=== PATIENT | female | born 1960 | race Caucasian/White ===

== ENCOUNTER → 2020-12-31 | Day surgery (SDC) | payer OTHER ==
[~2020-12-31] VITALS: Ht 157.5 cm; Wt 47.7 kg
[~2020-12-31] MED LIST: ALBUTEROL SULFATE 2.5 MG/3 ML NEBU. NEB PRN; EPINEPHrine 1 MG/ML VIAL INJ PRN; EPINEPHrine 1 MG/ML VIAL ONE; HYDR-2759 PO; IV RINGERS,LACTATED 1000ML 1,000 ML IV SCH; LIDOCAINE 1% Multi-Dose 20 ML VIAL. INJ PRN; LIDOCAINE 1% Multi-Dose 20 ML VIAL. ONE; LIDOCAINE 2% PF 5 ML VIAL. ONE; LIDOCAINE 2% VISCOUS 100 ML BOTTLE. MM PRN; LIDOCAINE 2% VISCOUS 100 ML BOTTLE. ONE; LIDOCAINE 4% TOPICAL 50 ML SOLUTION. MM PRN; LIDOCAINE 4% TOPICAL 50 ML SOLUTION. ONE; LIDOCAINE WITH 8.4% SOD BICARB 3 ML DISP.SYRIN. INJ ONE; LIDOCAINE WITH 8.4% SOD BICARB 3 ML DISP.SYRIN. ONE; OMEP40CA7 PO; PROPOFOL 10 MG/ML (20ML) VIAL. IV ONE
[2020-12-31 08:57] VITALS: BP 116/82
[2020-12-31 09:24] LABS: BASO # 0.1 x10^3/uL (0.0-0.2); BASO % 1 % (0-3); EOS # 1.2 x10^3/uL (0.0-0.7); EOS % 9 % (0-3); HEMATOCRIT 42.9 % (36.0-47.0); HEMOGLOBIN 14.5 g/dL (12.0-15.5); LYMPH # 1.1 x10^3/uL (1.0-4.8); LYMPH % 8 % (24-48); MEAN CORPUSCULAR HEMOGLOBIN 32 pg (25-35); MEAN CORPUSCULAR HGB CONC 34 g/dL (31-37); MEAN CORPUSCULAR VOLUME 93 fL (79-100); MONO # 0.9 x10^3/uL (0.0-1.1); MONO % 7 % (0-9); NEUT # 10.1 x10^3/uL (1.8-7.7); NEUT % 76 % (31-73); PLATELET COUNT 564 x10^3/uL (140-400); RED BLOOD COUNT 4.61 x10^6/uL (3.50-5.40); RED CELL DISTRIBUTION WIDTH 12.3 % (11.5-14.5); WHITE BLOOD COUNT 13.3 x10^3/uL (4.0-11.0)
--- NOTE | 2020-12-31 10:45 | OP ---
DATE OF SURGERY: 12/31/2020 BRONCHOSCOPY NOTE INDICATIONS: Lung cancer. DESCRIPTION OF PROCEDURE: Informed consent was obtained from the patient. All risks and benefits were explained. She agreed to proceed with the procedure. Propofol was used by anesthesia for sedation. Bronch was introduced through the left nostril. The upper airway was passed. Vocal cords moves equally with respiration. The trachea was entered. There was a large lesion seen at the samy. Right lung was examined. There was total occlusion of the right upper lobe bronchus. There was also total occlusion of the right middle lobe bronchus by the endobronchial tumor. There was minimal opening of the right lower lobe bronchus. There was a tumor at the opening of that as well. Biopsies were performed from the endobronchial lesion in the right middle lobe as well as opening of the right lower lobe. There was minimal oozing of blood seen which was controlled with a squirt of epinephrine. Bronch was introduced in the left lung. There was a large endobronchial lesion seen at the distal left main stem bronchus. Airway beyond that was still patent. No biopsies were performed from that area. IMPRESSION: 1. Endobronchial lesion seen at the main samy, , endobronchial lesion in the right middle lobe causing a total occlusion of the RML bronchus, also endobronchial lesion in the right upper lobe causing total occlusion. There was also a lesion in the opening of the right lower lobe bronchus. 2. Endobronchial lesion seen in the distal left main stem bronchus as well. 3. Multiple biopsies were performed from the endobronchial lesions on the right side. Cytology brush was also performed. Minimal oozing of blood was controlled with epinephrine. 4. Follow the biopsy results. HINA DR: Shirley TID: [id number] MTDD
[2020-12-31 11:05] VITALS: BP 142/63
[2020-12-31 12:03] LABS: % BANDS 2 % (0-9); % BASOS 1 % (0-3); % EOS 7 % (0-5); % LYMPHS 3 % (24-48); % MONOS 5 % (0-10); % SEGS 82 % (35-66); PLT ESTIMATE INCREASED (ADEQUATE)
--- NOTE | 2021-01-02 17:07 | PATHOLOGY ---
Note [facility] Accession Number: [id number] TESTS RESULT FLAG UNITS REF RANGE LAB Clinician Provided Cytology Information No. of containers..01 Other (Miscellaneous) Source: [A] 01 RICARDO BRONCH BRUSH DIAGNOSIS: [A] 02 RICARDO BRONCH BRUSH POSITIVE FOR MALIGNANT CELLS. POORLY DIFFERENTIATED NON SMALL CELL CARCINOMA PRESENT. Signed out by: Davi Bender MD, Pathologist NPI- [id number] Performed by: Alejandra Yanez Financial Auditor ([facility]) Gross description: 01 JOBY HEMPHILL, 2 AF /LCS 01/02/2021 0304 Local FLAG LEGEND: L-Low Normal,H-High Normal,LL-Alert Low,HH-Alert High <-Panic Low,>-Panic High,A-Abnormal,AA-Critical Abnormal Performed at: [address] [place] [address] Toro Tracey MD, 02 [facility] [address] [place] [address] Davi Bender MD, Specimen Comment: A courtesy copy of this report has been sent to [phone] Specimen Comment: [phone] Specimen Comment: Report sent to DR. ENGLE / DR WEIR Specimen Comment: A duplicate report has been generated due to demographic updates. Performed at: [address] [place] [address] [facility] [address], [place], [place] [id number] MD Toro Tracey MD Phone: [phone]
--- NOTE | 2021-01-02 17:07 | PATHOLOGY ---
Note [facility] Accession Number: [id number] TESTS RESULT FLAG UNITS REF RANGE LAB Clinician Provided Cytology Information No. of containers..01 Other (Miscellaneous) Source: [A] 01 BRONCH BRUSHTIP DIAGNOSIS: [A] 02 BRONCH BR[place] POSITIVE FOR MALIGNANT CELLS. POORLY DIFFERENTIATED NON SMALL CELL CARCINOMA. Signed out by: 02 Davi Bender MD, Pathologist NPI- [id number] Performed by: Tessy Bains, Lead Software Developer ([facility]) Gross description: 01 BRUSHT, CLEAR COLORLESS, 1 TP /LCS 01/02/2021 0301 Local FLAG LEGEND: L-Low Normal,H-High Normal,LL-Alert Low,HH-Alert High <-Panic Low,>-Panic High,A-Abnormal,AA-Critical Abnormal Performed at: [address] [place] [address] Toro Tracey MD, 02 [facility] [address] [place] [address] Davi Bender MD, Specimen Comment: A courtesy copy of this report has been sent to [phone] Specimen Comment: [phone] Specimen Comment: Report sent to DR. ENGLE / DR WEIR Specimen Comment: A duplicate report has been generated due to demographic updates. Performed at: [address] [place] [address] [facility] [address], [place], [place] [id number] MD Toro Tracey MD Phone: [phone]
--- NOTE | 2021-01-03 16:08 | PATHOLOGY ---
[facility] Accession Number: [id number] . 01 Material submitted: . lung - BBX: RML, RLL, RUL . 01 Clinical history: . LUNG MASS/ TUMOR/ ENDOBRONCHIAL LESION BRONCHOSCOPY . 02 Diagnosis: Bronchial biopsies, right middle lobe, right lower lobe, and right upper lobe: - ADENOCARCINOMA, POORLY DIFFERENTIATED. SEE COMMENT. (JPM:keyla; 01/02/2021) S 01/03/2021 0851 Local . 02 Comment: Sections of the right middle lobe, right lower lobe, and right upper lobe bronchial biopsies reveal a malignant epithelial neoplasm. The malignant cells are present in small irregular solid nests within the stroma undermining the overlying bronchial mucosa. There is a focal suggestion of acinar formation. The malignant cells have ample amounts of eosinophilic cytoplasm, and possess enlarged, moderately to markedly pleomorphic irregular hyperchromatic nuclei containing prominent nucleoli. The tumor cells show no evidence of keratinization. A panel of immunoperoxidase stains is obtained on A1 and yields the following results: . Cytokeratin 7: Tumor cells positive. Cytokeratin 20: Tumor cells negative. TTF-1: Tumor cells positive. Napsin A: Tumor cells positive. P40: Tumor cells negative. . 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 The case is also examined by Dr. Madrigal, who concurs with the diagnosis on 01/03/18. The results are discussed with Dr. Oconenll on 01/02/2021. (JPM:keyla; 01/03/2021) . . Special stains performed: CK7, CK20, TTF-1, napsin A, and p40 on A1 . 02 Electronically signed: . Davi Bender MD, Pathologist NPI- [id number] . 01 Gross description: . The specimen is received in formalin, labeled "Amaris Mcleod and RML, RLL, RUL. It consists of 3 horton-white, irregular soft tissue fragments ranging from less than 0.1-0.3 cm in greatest dimension. The specimen is entirely submitted between sponges in A1. (MRF; 01/01/2021) MFE/MFE 01/02/2021 0903 Local . 02 Pathologist provided ICD-10: C34.2, C34.31, C34.11 . 02 CPT . 516271, [id number], [id number] Specimen Comment: A courtesy copy of this report has been sent to [phone] Specimen Comment: Report sent to Performed at: 01 [facility] [address] [id number] MD Toro Tracey MD Phone: [phone] Performed at: 02 [facility] [address] [place], [place] [id number] MD Davi Bender MD Phone: [phone]
== END ==
LOC: SURG 08:35
PROVIDERS: ATTEND Internal Medicine Critical Care Medicine
DX: R91.8 Other nonspecific abnormal finding of lung field (principal); C34.91 Malignant neoplasm of unspecified part of right bronchus or lung; F41.9 Anxiety disorder, unspecified; F32.9 Major depressive disorder, single episode, unspecified; M19.90 Unspecified osteoarthritis, unspecified site; Z85.828 Personal history of other malignant neoplasm of skin; F17.210 Nicotine dependence, cigarettes, uncomplicated; Z90.710 Acquired absence of both cervix and uterus; Z98.890 Other specified postprocedural states
CPT/HCPCS: 31625; 85007; 85025; 85610; 87426; 94640; J0171; J2704; J3490; J7613; 31622

== ENCOUNTER → 2021-01-07 | Outpatient (CLI) | payer OTHER ==
[2020-12-31 11:05] VITALS: BP 142/63
[~2021-01-07] MED LIST changes: -ALBUTEROL SULFATE 2.5 MG/3 ML NEBU. NEB PRN; -EPINEPHrine 1 MG/ML VIAL INJ PRN; -EPINEPHrine 1 MG/ML VIAL ONE; +FOLI0.8C PO; -IV RINGERS,LACTATED 1000ML 1,000 ML IV SCH; -LIDOCAINE 1% Multi-Dose 20 ML VIAL. INJ PRN; -LIDOCAINE 1% Multi-Dose 20 ML VIAL. ONE; -LIDOCAINE 2% PF 5 ML VIAL. ONE; -LIDOCAINE 2% VISCOUS 100 ML BOTTLE. MM PRN; -LIDOCAINE 2% VISCOUS 100 ML BOTTLE. ONE; -LIDOCAINE 4% TOPICAL 50 ML SOLUTION. MM PRN; -LIDOCAINE 4% TOPICAL 50 ML SOLUTION. ONE; -LIDOCAINE WITH 8.4% SOD BICARB 3 ML DISP.SYRIN. INJ ONE; -LIDOCAINE WITH 8.4% SOD BICARB 3 ML DISP.SYRIN. ONE; +ONDA4TAB7 PO; +PANT20TA2 PO; +PROC10TA57 PO; -PROPOFOL 10 MG/ML (20ML) VIAL. IV ONE; +SERT25TA PO
[2021-01-07 11:37] LABS: BASO % 0 % (0-3); EOS % 8 % (0-3); HEMATOCRIT 42.2 % (36.0-47.0); HEMOGLOBIN 14.4 g/dL (12.0-15.5); LYMPH # 1.3 x10^3/uL (1.0-4.8); LYMPH % 10 % (24-48); MEAN CORPUSCULAR HEMOGLOBIN 32 pg (25-35); MEAN CORPUSCULAR HGB CONC 34 g/dL (31-37); MEAN CORPUSCULAR VOLUME 93 fL (79-100); MONO % 8 % (0-9); NEUT % 74 % (31-73); PLATELET COUNT 624 x10^3/uL (140-400); RED BLOOD COUNT 4.53 x10^6/uL (3.50-5.40); RED CELL DISTRIBUTION WIDTH 12.3 % (11.5-14.5); WHITE BLOOD COUNT 13.4 x10^3/uL (4.0-11.0)
[2021-01-07 11:45] LABS: CALCIUM 9.7 mg/dL (8.5-10.1); CREATININE 0.6 mg/dL (0.6-1.0); GFR 102.3; POTASSIUM 4.4 mmol/L (3.5-5.1)
[2021-01-07 11:51] LABS: ALBUMIN 3.3 g/dL (3.4-5.0); ALBUMIN/GLOBULIN RATIO 0.9 (1.0-1.7); TOTAL BILIRUBIN 0.3 mg/dL (0.2-1.0); TOTAL PROTEIN 6.9 g/dL (6.4-8.2)
== END ==
LOC: ONCLAB 11:14
PROVIDERS: ATTEND Physician Assistant
DX: C34.01 Malignant neoplasm of right main bronchus (principal)
CPT/HCPCS: 36415; 80053; 83615; 83735; 85025

== ENCOUNTER 2021-01-10 09:48 | Outpatient (CLI) | payer OTHER ==
[~2021-01-10] VITALS: Ht 157.5 cm; Wt 45.5 kg
[~2021-01-10 09:48] MED LIST changes: -FOLI0.8C PO; -ONDA4TAB7 PO; -PANT20TA2 PO; -PROC10TA57 PO; -SERT25TA PO
[2021-01-10] MEDS ORDERED: SERT25TA PO (10:19)
[2021-01-10] MEDS ORDERED: FOLI0.8C PO (10:19)
[2021-01-10] MEDS ORDERED: PROC10TA57 PO (10:19)
[2021-01-10] MEDS ORDERED: PANT20TA2 PO (10:21)
[2021-01-10] MEDS ORDERED: ONDA4TAB7 PO (10:21)
[2021-01-10 10:23] VITALS: BP 127/82
[2021-01-10] MEDS ORDERED: LIDOCAINE 1%/EPI 1:100,000 20 ML VIAL. ONE (10:45)
[2021-01-10] MEDS ORDERED: ceFAZolin SODIUM IV Push 1 GM VIAL. IVP ONE ×2 (11:01→11:30)
[2021-01-10] MEDS ORDERED: fentaNYL PF VIAL 100 MCG/2 ML VIAL ONE (11:01)
[2021-01-10] MEDS ORDERED: MIDAZOLAM HCL/PF 2 MG/2 ML VIAL. ONE (11:01)
[2021-01-10] MEDS ORDERED: HEPARIN PF 500 UNIT/5 ML DISP.SYRIN. IVP ONE ×2 (11:04→11:30)
[2021-01-10] MEDS ORDERED: fentaNYL PF VIAL 100 MCG/2 ML VIAL IV ONE (11:30)
[2021-01-10] MEDS ORDERED: LIDOCAINE 1%/EPI 1:100,000 20 ML VIAL. INJ ONE (11:30)
[2021-01-10] MEDS ORDERED: MIDAZOLAM HCL/PF 2 MG/2 ML VIAL. IV ONE (11:30)
[2021-01-10 11:43] VITALS: BP 142/79
[2021-01-10 11:46] VITALS: BP 133/86
[2021-01-10 12:00] VITALS: BP 134/86
[2021-01-10 12:15] VITALS: BP 134/86
[2021-01-10 12:30] VITALS: BP 129/84
--- NOTE | 2021-01-10 12:46 | NUR ---
Discharge Note: MOISES DELCID Discharge instructions and discharge home medications reviewed with Patient and a copy given. All questions have been answered and understanding verbalized. The following instructions and handouts were given: Port placement and moderate sedation. Discontinued lines and drains: Left wrist IV dc'd, tip intact, and bandage applied. Patient discharged to home with via personal vehicle.
--- NOTE | 2021-01-10 13:45 | RAD ---
PROCEDURE: Fluoroscopically and ultrasound-guided placement of right internal jugular tunnel central venous catheter with port Clinical Indication: Chemotherapy access Discussion: The risks and benefits of the procedure were discussed with the patient and/or their telephone sales representative. Informed consent was obtained. The patient was brought to the fluoroscopy suite and placed in supine position. A time out procedure was performed. The right neck and chest were prepped and draped using maximum sterile barrier technique including th e use of: Current guideline approved cutaneous antisepsis, a large sterile sheet to establish a steri le field. Additionally the heading up machine operator wore a hat, mask, sterile gloves, a sterile gown during the proce dure as well as practiced acceptable hand hygiene prior to placing the port. Ultrasound-guided access: Ultrasound evaluation showed the right jugular vein to be patent and compr essible. 1 % lidocaine with epinephrine was administered to the skin and subcutaneous tissues overlyi ng the right neck and chest. Under direct ultrasound guidance a single wall puncture was made followe d by tract dilation and placement of a sheath. An ultrasound image was saved and sent to PACS. Next, an incision was made in an infraclavicular location and a pocket created. The catheter was tunneled between the pocket and the venotomy site. The catheter was advanced through the peel away sheath, u nder fluoroscopic guidance, such that it's tip was in the mid right atrium. The catheter was connecte d to the port reservoir. The port was accessed and found to flush and aspirate normally. The reservoi r was then placed into the subcutaneous pocket. The wound was closed in layers using 3 Vicryl and 4- 0 Vicryl suture. Dermabond was applied overlying the wound, and venotomy site. The patient tolerated procedure without immediate complication. Sedation: Conscious sedation was performed for 27 minutes. Sedation was carried while the patient w as continually monitored by a member of the Radiology nursing staff. Continual cardiopulmonary monit oring was carried out during the procedure. The patient tolerated the procedure well and there were no immediate complications. Fluoroscopy time: 0.3 mins Dose area product 1 Lomeli centimeter squared Impression: Successful ultrasound and fluoroscopically guided placement of right internal jugular ady altagracia central venous catheter with port Electronically signed by: Vernon Aponte MD (01/10/2021 1:42 PM) [id number]
--- NOTE | 2021-01-10 13:45 | RAD ---
PROCEDURE: Fluoroscopically and ultrasound-guided placement of right internal jugular tunnel central venous catheter with port Clinical Indication: Chemotherapy access Discussion: The risks and benefits of the procedure were discussed with the patient and/or their tax representative. Informed consent was obtained. The patient was brought to the fluoroscopy suite and placed in supine position. A time out procedure was performed. The right neck and chest were prepped and draped using maximum sterile barrier technique including th e use of: Current guideline approved cutaneous antisepsis, a large sterile sheet to establish a steri le field. Additionally the timber treatment plant operator wore a hat, mask, sterile gloves, a sterile gown during the proce dure as well as practiced acceptable hand hygiene prior to placing the port. Ultrasound-guided access: Ultrasound evaluation showed the right jugular vein to be patent and compr essible. 1 % lidocaine with epinephrine was administered to the skin and subcutaneous tissues overlyi ng the right neck and chest. Under direct ultrasound guidance a single wall puncture was made followe d by tract dilation and placement of a sheath. An ultrasound image was saved and sent to PACS. Next, an incision was made in an infraclavicular location and a pocket created. The catheter was tunneled between the pocket and the venotomy site. The catheter was advanced through the peel away sheath, u nder fluoroscopic guidance, such that it's tip was in the mid right atrium. The catheter was connecte d to the port reservoir. The port was accessed and found to flush and aspirate normally. The reservoi r was then placed into the subcutaneous pocket. The wound was closed in layers using 3 Vicryl and 4- 0 Vicryl suture. Dermabond was applied overlying the wound, and venotomy site. The patient tolerated procedure without immediate complication. Sedation: Conscious sedation was performed for 27 minutes. Sedation was carried while the patient w as continually monitored by a member of the Radiology nursing staff. Continual cardiopulmonary monit oring was carried out during the procedure. The patient tolerated the procedure well and there were no immediate complications. Fluoroscopy time: 0.3 mins Dose area product 1 Lomeli centimeter squared Impression: Successful ultrasound and fluoroscopically guided placement of right internal jugular ady altagracia central venous catheter with port Electronically signed by: Vernon Aponte MD (01/10/2021 1:42 PM) [id number]
--- NOTE | 2021-01-10 13:45 | RAD ---
PROCEDURE: Fluoroscopically and ultrasound-guided placement of right internal jugular tunnel central venous catheter with port Clinical Indication: Chemotherapy access Discussion: The risks and benefits of the procedure were discussed with the patient and/or their healthcare sales representative. Informed consent was obtained. The patient was brought to the fluoroscopy suite and placed in supine position. A time out procedure was performed. The right neck and chest were prepped and draped using maximum sterile barrier technique including th e use of: Current guideline approved cutaneous antisepsis, a large sterile sheet to establish a steri le field. Additionally the reeling machine operator wore a hat, mask, sterile gloves, a sterile gown during the proce dure as well as practiced acceptable hand hygiene prior to placing the port. Ultrasound-guided access: Ultrasound evaluation showed the right jugular vein to be patent and compr essible. 1 % lidocaine with epinephrine was administered to the skin and subcutaneous tissues overlyi ng the right neck and chest. Under direct ultrasound guidance a single wall puncture was made followe d by tract dilation and placement of a sheath. An ultrasound image was saved and sent to PACS. Next, an incision was made in an infraclavicular location and a pocket created. The catheter was tunneled between the pocket and the venotomy site. The catheter was advanced through the peel away sheath, u nder fluoroscopic guidance, such that it's tip was in the mid right atrium. The catheter was connecte d to the port reservoir. The port was accessed and found to flush and aspirate normally. The reservoi r was then placed into the subcutaneous pocket. The wound was closed in layers using 3 Vicryl and 4- 0 Vicryl suture. Dermabond was applied overlying the wound, and venotomy site. The patient tolerated procedure without immediate complication. Sedation: Conscious sedation was performed for 27 minutes. Sedation was carried while the patient w as continually monitored by a member of the Radiology nursing staff. Continual cardiopulmonary monit oring was carried out during the procedure. The patient tolerated the procedure well and there were no immediate complications. Fluoroscopy time: 0.3 mins Dose area product 1 Lomeli centimeter squared Impression: Successful ultrasound and fluoroscopically guided placement of right internal jugular day altagracia central venous catheter with port Electronically signed by: Vernon Aponte MD (01/10/2021 1:42 PM) [id number]
== END 2021-01-10 12:45 | disposition home or self-care (01) ==
LOC: INTRAD 09:48
PROVIDERS: ATTEND Internal Medicine Hematology & Oncology
DX: Z51.11 Encounter for antineoplastic chemotherapy (principal); F41.9 Anxiety disorder, unspecified; F32.9 Major depressive disorder, single episode, unspecified; M19.90 Unspecified osteoarthritis, unspecified site; Z85.118 Personal history of other malignant neoplasm of bronchus and lung; Z85.828 Personal history of other malignant neoplasm of skin; Z90.710 Acquired absence of both cervix and uterus; Z98.890 Other specified postprocedural states
CPT/HCPCS: 36561; 76937; 77001; 99152; 99153; C1788; C1892; J0690; J1642; J2250; J3010; J3490

== ENCOUNTER → 2021-01-11 | Outpatient (CLI) | payer OTHER ==
[2021-01-10 12:30] VITALS: BP 129/84
[~2021-01-11] MED LIST changes: +FOLI0.8C PO; +GADOTERATE 5 MMOL/10ML VIAL. IVP ONE; +ONDA4TAB7 PO; +PANT20TA2 PO; +PROC10TA57 PO; +SERT25TA PO
--- NOTE | 2021-01-11 12:24 | RAD ---
EXAM: Dual modality PET-CT Scan DATE: 01/11/2021 RADIOPHARMACEUTICAL: 15 mCi F-18 fluorodeoxyglucose (FDG) IV. CLINICAL HISTORY: Non-small cell lung cancer staging. COMPARISON: Chest CT dated 12/21/2020. TECHNIQUE: Approximately 45 minutes after tracer administration, routine, attenuation-corrected Posit jignesh Emission Tomography (PET) images were obtained from the level of the base of the skull through th e level of the mid thighs. Tomographic reconstructions are reviewed in coronal, transaxial and sagitt al planes. Non-contrast CT imaging was performed for attenuation correction and localization purpose s only. These images do not constitute a diagnostic-quality CT examination and were not used to diag nose disease independently of the PET images. The blood glucose level was 90 mg/dL at the time of FDG administration. *One or more of the following individualized dose reduction techniques were utilized for this examina tion: 1. Automated exposure control. 2. Adjustment of the mA and/or kV according to patient size. 3. Use of iterative reconstruction technique. FINDINGS: There is a large radiotracer avid right infrahilar mass with component of internal photopen ia due to necrosis which measures 8.0 cm in maximum dimension with a maximum SUV of 10.5. This consis tent with primary malignancy. This is contiguous with subcarinal lymphadenopathy demonstrating a maxi mum SUV of 10.0. There are radiotracer avid right upper lobe perihilar nodules measuring 1.3 cm and 1.0 cm with maximu m SUVs of 3.1. There is a 1.3 cm left lower lobe nodule with a maximum SUV of 2.9. There are few pili tional small pleural-based nodules within both lungs which are too small to characterize with PET. There is mediastinal and bilateral hilar metastatic lymphadenopathy. For reference purposes, the larg est right paratracheal lymph node or lymph node conglomerate measures 2.3 cm with a maximum SUV of 7. 7. The largest left paratracheal lymph node is seen at the thoracic inlet measuring 1.2 cm with a max imum SUV of 3.0. There is a dominant right hilar lymph node with an SUV of 7.0 and a prominent left h ilar lymph node with an SUV of 4.1. The largest anterior mediastinal lymph node measures 1.2 cm with an axillary of 5.0. There is also a pathologically enlarged right supraclavicular lymph node measurin g 1.5 cm with an SUV of 6.1. There is a 3.9 cm radiotracer avid right renal mass with an SUV of 10.2, metastatic in etiology. Ther e is a focus of increased radiotracer activity within the left cardiophrenic angle with an SUV of 3.1 . This is likely due to a cardiophrenic angle lymph node given the absence of a convincing nodule wit hin the adjacent left adrenal gland. The CT portion of the exam demonstrates the aforementioned large right infrahilar mass measuring appr oximately 8.0 cm in transaxial dimension. This is not clearly separable from subcarinal and infrahila r lymphadenopathy. There is right central bronchial wall thickening. There are additional pathologica lly enlarged bilateral paratracheal, prevascular, and aortopulmonary window lymph nodes. There is a s mall pericardial effusion. There is a port catheter with the tip in the right atrium. The aorta is no rmal in caliber. There is no pneumothorax. There is a small right pleural effusion and partial right middle and lower lobe collapse. There is a 1.3 cm left lower lobe pulmonary nodule with adjacent pleu ral thickening likely due to a fissural lymph node. There is also a 9 mm left perihilar nodule with s urrounding groundglass. There are 1.3 cm and 1.0 cm right perihilar nodules. No hepatic lesion is seen. The gallbladder, pancreas, spleen and left adrenal gland are unremarkable. There is a 4.0 cm right adrenal nodule. There is a 3 mm left renal calcification or hemorrhagic cyst . There is a large amount of colonic stool. There is colonic diverticulosis. The urinary bladder is u nremarkable. The uterus is retroverted. The adnexal regions are unremarkable. The aorta is normal in caliber. No mesenteric or retroperitoneal lymphadenopathy is seen. The visualized portions of the brain are unremarkable. There is no convincing neck lymphadenopathy. T here is a heterogeneous enlarged thyroid. No discrete nodule is seen. There are degenerative changes throughout the spine. There is no acute or suspicious osseous finding. IMPRESSION: 1. 8.0 cm radiotracer avid right infrahilar mass with an SUV of 10.5, consistent with known primary m alignancy. 2. Extensive metastatic mediastinal and bilateral hilar lymphadenopathy and right supraclavicular lym phadenopathy. There is also a suspected metastatic lymph node within the left cardiophrenic angle. Th is is described in detail above. 3. 1.3 cm and 1.0 cm right perihilar pulmonary nodules and 1.3 cm left lower lobe nodule with increas ed radiotracer activity likely due local metastases or additional primary neoplasm. There are few add itional indeterminant tiny pulmonary nodules which are difficult to characterize given their small si ze. 4. Small right pleural effusion and partial right lung collapse. This is decreased compared to the pr ior study. 5. Small pericardial effusion. 6. 3.9 cm metastatic right adrenal nodule with an SUV of 10.2. No additional convincing metastatic ac tivity is seen inferior to the diaphragm. 7. Please refer to the above report for additional findings regarding the non-PET portion of the exam . Electronically signed by: Sarah Bocanegra MD (01/11/2021 12:21 PM) [id number]
--- NOTE | 2021-01-11 14:27 | RAD ---
EXAMINATION: Magnetic resonance imaging (MRI) of the brain and brainstem without and with contrast 11:21 AM HISTORY: Non-small cell lung cancer TECHNIQUE: Multiplanar multi-weighted MRI of the brain and brainstem was performed without and with i ntravenous contrast using the general brain protocol. Contrast information: 9 mL Gadolinium based contrast COMPARISON: None available. FINDINGS: The scalp and calvarium are normal. The superior sagittal sinus demonstrates normal venous flow. The corpus callosum is normal in shape and signal intensity. The posterior fossa is unremarkable. The p ituitary and sella are normal. The brainstem and craniocervical junction are unremarkable.. There ar e T2/FLAIR signal hyperintense foci in the periventricular and subcortical white matter most suggesti ve of mild chronic small vessel ischemic changes. Diffusion weighted images reveal no hyperintensities to suggest acute cerebral infarction. The suscep tibility weighted sequences reveal no evidence of acute or chronic hemorrhage. The ventricles are nor mal in size and position without evidence of hydrocephalus. There are no areas of abnormal contrast enhancement. The paranasal sinuses are normal. The visualized portions of the mastoids are unremarkable. The orbi ts appear normal. Normal flow voids are demonstrated in the carotid arteries and basilar artery. IMPRESSION: No evidence for acute or subacute ischemia. No evidence for intracranial metastatic disease. Electronically signed by: Galilea Doan MD (01/11/2021 2:25 PM) [id number]
== END ==
LOC: PETSC 10:06
PROVIDERS: ATTEND Internal Medicine Hematology & Oncology
DX: J90 Pleural effusion, not elsewhere classified (principal); I31.3 Pericardial effusion (noninflammatory); R59.0 Localized enlarged lymph nodes; R91.8 Other nonspecific abnormal finding of lung field; E27.8 Other specified disorders of adrenal gland; N28.89 Other specified disorders of kidney and ureter; K57.30 Diverticulosis of large intestine without perforation or abscess without bleeding; M47.819 Spondylosis without myelopathy or radiculopathy, site unspecified; C34.01 Malignant neoplasm of right main bronchus
CPT/HCPCS: 70553; 78815; A9552; A9575

== ENCOUNTER → 2021-01-16 | Outpatient (CLI) | payer OTHER ==
[2021-01-10 12:30] VITALS: BP 129/84
[~2021-01-16] MED LIST changes: -GADOTERATE 5 MMOL/10ML VIAL. IVP ONE
[2021-01-16 11:51] LABS: BASO # 0.1 x10^3/uL (0.0-0.2); BASO % 1 % (0-3); EOS # 1.4 x10^3/uL (0.0-0.7); EOS % 17 % (0-3); HEMATOCRIT 42.6 % (36.0-47.0); HEMOGLOBIN 15.1 g/dL (12.0-15.5); LYMPH # 0.9 x10^3/uL (1.0-4.8); LYMPH % 10 % (24-48); MEAN CORPUSCULAR HEMOGLOBIN 33 pg (25-35); MEAN CORPUSCULAR HGB CONC 36 g/dL (31-37); MEAN CORPUSCULAR VOLUME 92 fL (79-100); MONO # 0.6 x10^3/uL (0.0-1.1); MONO % 7 % (0-9); NEUT # 5.3 x10^3/uL (1.8-7.7); NEUT % 65 % (31-73); PLATELET COUNT 352 x10^3/uL (140-400); RED BLOOD COUNT 4.62 x10^6/uL (3.50-5.40); WHITE BLOOD COUNT 8.2 x10^3/uL (4.0-11.0)
[2021-01-16 12:07] LABS: CALCIUM 9.4 mg/dL (8.5-10.1); CREATININE 0.7 mg/dL (0.6-1.0); GFR 85.6; POTASSIUM 3.9 mmol/L (3.5-5.1)
[2021-01-16 12:14] LABS: ALBUMIN 3.2 g/dL (3.4-5.0); ALBUMIN/GLOBULIN RATIO 0.9 (1.0-1.7); TOTAL BILIRUBIN 0.4 mg/dL (0.2-1.0); TOTAL PROTEIN 6.8 g/dL (6.4-8.2)
[2021-01-16 12:51] LABS: % EOS 10 % (0-5); % LYMPHS 16 % (24-48); % MONOS 4 % (0-10); % SEGS 70 % (35-66); PLT ESTIMATE ADEQUATE (ADEQUATE)
== END ==
LOC: ONCLAB 11:19
PROVIDERS: ATTEND Internal Medicine Hematology & Oncology
DX: C34.01 Malignant neoplasm of right main bronchus (principal)
CPT/HCPCS: 36415; 80053; 85007; 85025